=== PATIENT | male | born 1990 | race American Indian/Alaskan Native ===

== ENCOUNTER 2018-08-28 21:29 | Emergency (ER) | payer SELFPAY ==
[2018-08-28 22:16] LABS: Basophils % (Auto) 0.6 % (0.0-1.8); Eosinophils % (Auto) 0.3 % (0.0-4.3); Hematocrit 43.3 % (35.5-45.6); Hemoglobin 13.9 gm/dl (11.8-15.2); Lymphocytes # (Auto) 3.2 K/mm3 (1.2-5.4); Lymphocytes % (Auto) 38.9 % (13.4-35.0); Mean Corpuscular HGB Conc 32 % (32-34); Mean Corpuscular Volume 78 fl (84-94); Monocytes # (Auto) 0.5 K/mm3 (0.0-0.8); Monocytes % (Auto) 6.3 % (0.0-7.3); Platelet Count 277 K/mm3 (140-440); Red Blood Count 5.55 M/mm3 (3.65-5.03); Red Cell Distribution Width 15.9 % (13.2-15.2)
[2018-08-28 22:43] LABS: BUN/Creatinine Ratio 13; Blood Urea Nitrogen 12 mg/dL (9-20); Calcium 9.9 mg/dL (8.4-10.2); Hemolysis Index 27; Mean Corpuscular Hemoglobin 25 pg (28-32)
[2018-08-28 22:55] LABS: Bilirubin,Urine NEG (Negative); Blood,Urine NEG (Negative); Color,Urine Straw (Yellow); Mucus,Urine FEW /HPF; Protein,Urine <15 mg/dL mg/dL (Negative); Urobilinogen,Urine < 2.0 mg/dL (<2.0); WBC,Urine < 1.0 /HPF (0.0-6.0)
--- NOTE | 2018-08-28 22:56 | XRay Report ---
FINAL REPORT PROCEDURE: XR CHEST ROUTINE 2V TECHNIQUE: PA and lateral chest radiographs were obtained. CPT 42229 HISTORY: KEHSA COMPARISON: No prior studies are available for comparison. FINDINGS: Heart: Normal. Mediastinum/Vessels: Normal. Lungs/Pleural space: Normal. Bony thorax: No acute osseous abnormality. Other: IMPRESSION: Normal examination.
[2018-08-28] MEDS ORDERED: NACL 0.9% 1000 ML 1,000 ML IV ONE (23:14)
--- NOTE | 2018-08-28 23:14 | Emergency Department Report ---
ED General Adult HPI - General Chief complaint: Hyperglycemia Stated complaint: KSEHA/DIZZINESS Time Seen by Provider: 08/28/18 22:59 Source: patient Mode of arrival: Ambulatory Limitations: No Limitations - History of Present Illness Initial comments: Patient is 28 years old male with history of type 2 diabetes. Patient presented to the ER complaining of generalized weakness and blurry vision and extremity pain and thirsty for the last few days. Patient stated that he run out of his diabetic medication 3 months ago because of an insurance issue. Patient stated that he was taking Novolin 35 units twice a day, metformin 500 mg and glipizide 10 mg. Patient denied any headache, chest pain, shortness of breath, abdominal pain, nausea or vomiting. - Related Data Allergies Allergy/AdvReac Type Severity Reaction Status Date / Time No Known Allergies Allergy Unverified 08/28/18 21:51 ED Review of Systems ROS: Stated complaint: KESHA/DIZZINESS Other details as noted in HPI Comment: All other systems reviewed and negative Constitutional: denies: chills, fever Respiratory: denies: cough, orthopnea, shortness of breath, SOB with exertion Cardiovascular: denies: chest pain, palpitations Gastrointestinal: denies: abdominal pain, nausea, vomiting Psychiatric: denies: depression ED Past Medical Hx - Past Medical History Previous Medical History?: Yes Hx Diabetes: Yes Additional medical history: Lupus - Surgical History Past Surgical History?: Yes Additional Surgical History: Hip - Social History Smoking Status: Former Smoker Substance Use Type: None ED Physical Exam - General Limitations: No Limitations General appearance: alert, in no apparent distress - Head Head exam: Present: atraumatic, normocephalic, normal inspection - Eye Eye exam: Present: normal appearance, PERRL - ENT ENT exam: Present: mucous membranes dry - Neck Neck exam: Present: normal inspection, full ROM. Absent: tenderness, meningismus, lymphadenopathy, thyromegaly - Respiratory Respiratory exam: Present: normal lung sounds bilaterally. Absent: respiratory distress, wheezes, rales, rhonchi, stridor, chest wall tenderness, accessory muscle use, decreased breath sounds, prolonged expiratory - Cardiovascular Cardiovascular Exam: Present: regular rate, normal rhythm, normal heart sounds - GI/Abdominal GI/Abdominal exam: Present: soft, normal bowel sounds. Absent: distended, tenderness, guarding, rebound, rigid, organomegaly, mass, bruit, pulsatile mass , hernia - Extremities Exam Extremities exam: Present: normal inspection, full ROM, normal capillary refill. Absent: pedal edema, calf tenderness - Back Exam Back exam: Present: normal inspection, full ROM. Absent: CVA tenderness (L), muscle spasm, paraspinal tenderness, vertebral tenderness - Neurological Exam Neurological exam: Present: alert, oriented X3, CN II-XII intact, normal gait, reflexes normal - Skin Skin exam: Present: warm, intact, normal color ED Course Vital Signs 08/28/18 08/28/18 21:46 23:03 Temperature 98.7 F 98.6 F Pulse Rate 92 H 75 Respiratory 18 19 Rate Blood Pressure 135/79 Blood Pressure 138/80 [Left] O2 Sat by Pulse 98 97 Oximetry ED Medical Decision Making - Lab Data Result diagrams: 08/28/18 21:54 08/28/18 21:54 - Radiology Data Radiology results: report reviewed Referring Physician: ERIC NEWMAN Patient Name: SOREN JASSO Date of : 1990 Sex: Male Report Date: 2018-08-28 Report Status: Finalized Findings [facility] [address] [place] [address] XRay Report Signed Patient: SOREN JASSO MR#: [id number] : 1990 Acct:[id number] Age/Sex: 28 / M ADM Date: 08/28/18 Loc: ED Attending Dr: Ordering Physician: ERIC NEWMAN MD Date of Service: 08/28/18 Procedure(s): XR chest routine 2V Accession Number(s): [id number] cc: ED MD PATY Fluoro Time In Minutes: FINAL REPORT PROCEDURE: XR CHEST ROUTINE 2V TECHNIQUE: PA and lateral chest radiographs were obtained. CPT 02264 HISTORY: KESHA COMPARISON: No prior studies are available for comparison. FINDINGS: Heart: Normal. Mediastinum/Vessels: Normal. Lungs/Pleural space: Normal. Bony thorax: No acute osseous abnormality. Other: IMPRESSION: Normal examination. Transcribed By: [facility] – [place] Dictated By: FLOYD OROZCO Electronically Authenticated By: FLOYD OROZCO Signed Date/Time: 08/28/182254 DD/ 54 TD/TT: 08/28/182254 - Medical Decision Making Ms Jasso is 28 years old male with history of type 2 diabetes. Patient presented to the ER complaining of generalized weakness and blurry vision and extremity pain and thirsty for the last few days. Patient stated that he run out of his diabetic medication 3 months ago because of an insurance issue. Patient stated that he was taking Novolin 35 units twice a day, metformin 500 mg and glipizide 10 mg. Patient denied any headache, chest pain, shortness of breath, abdominal pain, nausea or vomiting. Patient received 1 L of normal saline, insulin 5 units IV. Patient) is 233. Patient stated that he is feeling much better. I prescribed the patient his diabetic medication and I gave him a [facility] for follow-up. Critical care attestation.: If time is entered above; I have spent that time in minutes in the direct care of this critically ill patient, excluding procedure time. ED Disposition Clinical Impression: Hyperglycemia Disposition: DC-01 TO HOME OR SELFCARE Is pt being admited?: No Condition: Stable Instructions: Diabetic Hyperglycemia (ED) Referrals: [facility] [Provider Group] - 3-5 Days
[2018-08-28] MEDS ORDERED: HumuLIN R IV ONE (23:38)
[2018-08-29 01:05] VITALS: BP 119/56
== END 2018-08-29 01:20 | disposition home or self-care (01) ==
LOC: ED 21:29
DX: E11.65 Type 2 diabetes mellitus with hyperglycemia (principal); H53.8 Other visual disturbances; M79.18 Myalgia, other site; Z87.891 Personal history of nicotine dependence; Z79.84 Long term (current) use of oral hypoglycemic drugs
CPT/HCPCS: 36415; 71046; 80048; 81001; 82805; 82962; 85025; 93005; 93010; 96361; 96374; 99284; J7030; J1815